=== PATIENT | female | born 1970 | race Caucasian/White ===

== ENCOUNTER 2017-12-27 12:10 | Inpatient (IN) | payer OTHER ==
[~2017-12-27] VITALS: Ht 160 cm; Wt 83.5 kg
[2017-12-27] MEDS ORDERED: ONDANSETRON HCL/PF 4 MG/2 ML VIAL ONE (12:55)
[2017-12-27 12:59] LABS: BASOPHILS # (AUTO) 0.1 /CMM (0.0-0.2); BASOPHILS % (AUTO) 1.3 % (0.0-2.0); EOSINOPHILS % (AUTO) 0.5 % (0.0-6.0); HEMATOCRIT 37 % (33-45); HEMOGLOBIN 12.4 g/dL (11.5-14.8); LYMPHOCYTES # (AUTO) 0.5 /CMM (0.8-4.8); LYMPHOCYTES % (AUTO) 6.7 % (20.0-44.0); MEAN CORPUSCULAR HGB CONC 34 g/dl (31.0-36.0); MEAN CORPUSCULAR VOLUME 86 fL (82-100); MONOCYTES # (AUTO) 0.6 /CMM (0.1-1.30); MONOCYTES % (AUTO) 7.8 % (2.0-12.0); NEUTROPHILS # (AUTO) 6.7 /CMM (1.8-8.9); NEUTROPHILS % (AUTO) 83.7 % (43.0-81.0); PLATELET COUNT (AUTO) 198 /CMM (150-450); RDW COEFFICIENT OF VARIATION 13.3 (11.5-15.0); WHITE BLOOD COUNT (AUTO) 7.9 K/uL (4.3-11.0)
[2017-12-27] MEDS ORDERED: IV NS 0.9% 1,000 ML BAG IV ONE ×2 (13:00→14:30)
[2017-12-27] MEDS ORDERED: ONDANSETRON HCL/PF 4 MG/2 ML VIAL IV ONE (13:00)
[2017-12-27 13:09] LABS: CALCIUM, SERUM 8.4 mg/dL (8.5-10.1); CREATININE 0.9 mg/dL (0.6-1.3)
--- NOTE | 2017-12-27 13:11 | NUR ---
pt states "feeling better now", relaxing in bed no obvious distress. Status quo VSS
[2017-12-27 13:15] LABS: BILIRUBIN,DIRECT 0.3 mg/dL (0.0-0.2); BILIRUBIN,TOTAL 0.9 mg/dL (0.2-1.0); TOTAL PROTEIN, SERUM 7.2 g/dL (6.4-8.2)
--- NOTE | 2017-12-27 14:05 | NUR ---
pt complaining of chiils-Febrile Temp 103 ER provider notified w/orders
[2017-12-27] MEDS ORDERED: ACETAMINOPHEN ES 500 MG TABLET ONE (14:11)
[2017-12-27] MEDS ORDERED: ACETAMINOPHEN 325 MG TABLET PO ONE (14:30)
[2017-12-27 14:45] LABS: APPEARANCE,URINE Clear (CLEAR); BILIRUBIN,URINE SMALL (NEGATIVE); BLOOD, URINE Trace-intact Ery/uL (NEGATIVE); COLOR,URINE Dark (YELLOW); KETONES,URINE 40 (NEGATIVE); LEUKOCYTE ESTERASE ,URINE Small (NEGATIVE); NITRITE, URINE Negative (NEGATIVE); PROTEIN,URINE 100 mg/dl (NEGATIVE); UGLUCOSE Negative (NEGATIVE)
[2017-12-27 14:55] LABS: BACTERIA,URINE Many /HPF (None Seen); RBC,URINE 0-2 /HPF (0-2); SQUAMOUS EPITHELIAL CELL,UR Few /HPF (None Seen)
[2017-12-27] MEDS ORDERED: FLAGYL/NS RTU 500 MG/100 ML PIGGYBACK IV ONE (15:00)
[2017-12-27] MEDS: PIPERACILLIN /TAZOBACTAM 3.375 G in IV D5W 50 ML IV SCH (15:30)
--- NOTE | 2017-12-27 15:49 | NUR ---
pt remains febrile ER provider notified with additional orders. Both pt and daughter aware of plan of care. Await admission
[2017-12-27] MEDS ORDERED: KETOROLAC TROMETHAMINE INJ 30 MG/ML VIAL ONE (15:50)
[2017-12-27] MEDS ORDERED: METRONIDAZOLE 500MG/ NS 100ML 500 MG in PREMIX 1 EA IV ONE (16:00)
[2017-12-27] MEDS ORDERED: KETOROLAC TROMETHAMINE INJ 30 MG/ML VIAL IV ONE (16:00)
--- NOTE | 2017-12-27 16:29 | NUR ---
resting comfortably in bed. both pt and daughter aware of PC. Status quo states "feeling a bit better" Temperature now 101.7 MD aware
--- NOTE | 2017-12-27 16:51 | NUR ---
Nurse knowledge Exchange w/RNMoni. 2nd Lactate pending NO acute changes No obvious distress. Transported/EMT Syed w/family member daughter (Rosey)
--- NOTE | 2017-12-27 17:57 | NUR ---
MS RN NOTES ADMITTED 47 YEAR OLD [place] FEMALE. ARRIVED AT 1710 VIA GURNEY, PATIENT AWAKE, ALERT AND ORIENTED X 4. VERBALLY RESPONSIVE AND RESPONDS TO VERBAL AND TACTILE STIMULI. BREATHING EVEN AND UNLABORED. NO SOB OR ACUTE DISTRESS NOTED. PATIENT DENIES PAIN OR DISCOMFORT. VERBALIZED THAT SHE WAS FEELING PAIN ON RUQ ABD PRIOR TO ADMISSION BUT NO FURTHER PAIN AT THIS TIME. PATIENT CALM AND RELAXED. NO CHANGES IN LOC NOTED. ORAL TEMPERATURE TAKEN WITH RESULT OF 98.6F. SISTER (NATHAN) AT BEDSIDE. PATIENT UNDER MEDICAL SUPERVISION OF GUILLERMINA JEAN BAPTISTE. MADE AWARE OF PATIENT ARRIVAL. AWAITING FOR ADMISSION ORDERS. PATIENT ORIENTED TO UNIT, STAFF, MEDICATIONS, PLAN OF CARE, PRIMARY PHYSICIAN. WILL CONTINUE TO MONITOR. BED LOCKED AND IN LOW POSITION. BILATERAL UPPER SIDE RAILS UP AND LOCKED. CALL LIGHT WITHIN EASY REACH
[2017-12-27 18:22] VITALS: BP 98/55
--- NOTE | 2017-12-27 18:55 | NUR ---
MS RN NOTES RECEIVED CALL FROM DR. LEVINE, NOTIFIED STAFF THAT PATIENT IS SCHEDULED FOR LAPAROSCOPIC CHOLECYSTECTOMY, POSSIBLE OPEN. ON 12/28/17 AT 0730. VERIFIED INFORMED CONSENT OBTAINED BY MD FROM PATIENT AND WITNESSED BY NURSING STAFF. PATIENT TO BE NPO UNTIL PROCEDURE. PATIENT SEEN AND EXAMINED BY GUILLERMINA JEAN BAPTISTE, MADE AWARE OF POTASSIUM 3.0, AWAITING FOR FURTHER ORDERS.
--- NOTE | 2017-12-27 18:58 | NUR ---
MS RN NOTES PATIENT RESTING INSIDE ROOM. AWAKE, ALERT AND ORIENTED. VERBALLY RESPONSIVE AND RESPONDS TO VERBAL AND TACTILE STIMULI. BREATHING EVEN AND UNLABORED. NO SOB OR ACUTE DISTRESS NOTED. NO CHANGES IN LOC. PATIENT CALM AND RELAXED. DAUGHTER, RIA, AT BEDSIDE. WILL ENDORSE TO INCOMING SHIFT FOR RAJ. BED LOCKED AND IN LOW POSITION. BILATERAL UPPER SIDE RAILS UP AND LOCKED. CALL LIGHT WITHIN EASY REACH
[2017-12-27] MEDS ORDERED: IV NS 0.9% 1,000 ML IV PRN (19:00)
[2017-12-27] MEDS ORDERED: ONDANSETRON HCL/PF 4 MG/2 ML VIAL IVP PRN (19:00)
[2017-12-27] MEDS ORDERED: Z GUARD REMEDY 2 OZ OINT TP PRN (19:00)
[2017-12-27] MEDS ORDERED: MAGNESIUM HYDROXIDE 30 ML UDC PO PRN (19:00)
[2017-12-27] MEDS ORDERED: HYDROCODONE/APAP 5/325MG 1 EACH TABLET PO PRN (19:00)
--- NOTE | 2017-12-27 19:13 | NUR ---
MS RN NOTES OBTAINED ORDER FROM GUILLERMINA JEAN BAPTISTE TO START KCL 10MEQ/50ML IV X 4 DOSES FOR A TOTAL OF 40MEQ. ORDER NOTED AND CARRIED OUT. PHARMACY MADE AWARE. PATIENT MADE AWARE AND VERBALIZED UNDERSTANDING.
--- NOTE | 2017-12-27 19:31 | NUR ---
MS RN OPENING NOTES PT WAS RECEIVED IN BED AT THE LOWEST AND LOCKED POSITION WITH SIDE RAILS UP X2, A/O X4, NO S/S OF PAIN OR DISTRESS NOTED, BREATHING EVEN AND UNLABORED ON ROOM AIR, IV ARE PATENT AND INTACT, YORUBA SPEAKING ONLY, DAUGHTER IS PRESENT AT THE BEDSIDE, SAFETY PRECAUTIONS IN PLACE, CALL LIGHT WITHIN REACH, WILL CONTINUE TO MONITOR
[2017-12-27 20:00] VITALS: BP 106/60
[2017-12-27] MEDS: PANTOPRAZOLE 40 MG VIAL IV SCH (20:40)
[2017-12-27] MEDS ORDERED: POTASSIUM CL. PREMIX PERIPHER. 200 ML ONE (20:46)
[2017-12-27] MEDS ORDERED: MORPHINE SULFATE INJ 2 MG/ML DISP.SYRIN IV PRN (21:00)
[2017-12-27] MEDS ORDERED: KETOROLAC TROMETHAMINE INJ 30 MG/ML VIAL IV PRN (21:00)
[2017-12-27] MEDS: POTASSIUM CHLORIDE 10 MEQ/50 ML PREMIXED IVPB FOR PERIPHERAL LINE IV SCH ×2 (21:11→22:41)
[2017-12-28] VITALS (13 sets, daily range): BP systolic 101–138; BP diastolic 63–76
[2017-12-28] MEDS: POTASSIUM CHLORIDE 10 MEQ/50 ML PREMIXED IVPB FOR PERIPHERAL LINE IV SCH ×2 (00:09→02:32)
[2017-12-28] MEDS ORDERED: PIPERACILLIN /TAZOBACTAM 3.375 G VIAL IV ONE ×2 (00:56→05:35)
[2017-12-28] MEDS: ZOLPIDEM TARTRATE 5 MG TABLET PO PRN ×2 (01:06→22:27)
--- NOTE | 2017-12-28 02:38 | NUR ---
PT POTASSIUM WAS NOTED TO BE 3.O, 40 MEQ WERE ORDERED, 4 BAGS WERE GIVEN, WILL CONTINUE TO MONITOR
[2017-12-28] MEDS: PIPERACILLIN /TAZOBACTAM 3.375 G in IV D5W 50 ML IV SCH ×5 (06:03→17:13)
--- NOTE | 2017-12-28 06:24 | NUR ---
MS RN CLOSING NOTES PT IN BED AT THE LOWEST AND LOCKED POSITION WITH SIDE RAILS UP X2, A/O X4, NO S/S OF PAIN OR DISTRESS NOTED, BREATHING EVEN AND UNLABORED ON ROOM AIR, IV ARE PATENT AND INTACT, AMHARIC SPEAKING ONLY, HAD DIFFICULTY SLEEPING DUE TO BEING WORRIED ABOUT PROCEDURE, 4 BAGS OF K+ WERE GIVEN, DAUGHTER PRESENT AT BEDSIDE, SAFETY PRECAUTIONS IN PLACE, ALL NEEDS ATTENDED TO, CALL LIGHT WITHIN REACH, WILL CONTINUE TO MONITOR AND ENDORSE TO DAY SHIFT FOR RAJ.
[2017-12-28 07:00] LABS: BASOPHILS % (AUTO) 0.2 % (0.0-2.0); EOSINOPHILS % (AUTO) 0.7 % (0.0-6.0); HEMATOCRIT 33 % (33-45); HEMOGLOBIN 10.7 g/dL (11.5-14.8); LYMPHOCYTES # (AUTO) 0.7 /CMM (0.8-4.8); LYMPHOCYTES % (AUTO) 12.7 % (20.0-44.0); MEAN CORPUSCULAR HGB CONC 33 g/dl (31.0-36.0); MEAN CORPUSCULAR VOLUME 89 fL (82-100); MONOCYTES # (AUTO) 0.5 /CMM (0.1-1.30); MONOCYTES % (AUTO) 8.8 % (2.0-12.0); NEUTROPHILS # (AUTO) 4.2 /CMM (1.8-8.9); NEUTROPHILS % (AUTO) 77.6 % (43.0-81.0); PLATELET COUNT (AUTO) 160 /CMM (150-450); RDW COEFFICIENT OF VARIATION 14.3 (11.5-15.0); RED BLOOD CELL COUNT(AUTO) 3.69 MIL/uL (4.0-5.2); WHITE BLOOD COUNT (AUTO) 5.4 K/uL (4.3-11.0)
--- NOTE | 2017-12-28 07:01 | NUR ---
MS RN NOTES PATIENT RECEIVED AWAKE, ALERT AND ORIENTED. VERBALLY RESPONSIVE AND RESPONDS TO VERBAL AND TACTILE STIMULI. BREATHING EVEN AND UNLABORED. NO SOB OR ACUTE DISTRESS. DENIES ANY PAIN OR DISCOMFORT. PATIENT TO BE PICKED UP BY OR STAFF, FOR LAP CHOLECYSTECTOMY, POSSIBLE OPEN THIS AM. PATIENT NPO SINCE ADMISSION ON UNIT. DAUGHTER, RIA, AT BEDSIDE. WILL CONTINUE TO MONITOR.
--- NOTE | 2017-12-28 07:02 | NUR ---
PT was picked up by OR in medically stable condition at this time
[2017-12-28 07:17] LABS: CALCIUM, SERUM 7.5 mg/dL (8.5-10.1); CREATININE 0.7 mg/dL (0.6-1.3); MAGNESIUM 1.9 mg/dL (1.8-2.4); PHOSPHORUS 2.1 mg/dL (2.5-4.9); POTASSIUM 3.4 mmol/L (3.5-5.1)
[2017-12-28] MEDS ORDERED: MORPHINE SULFATE INJ 4 MG/ML DISP.SYRIN IV PRN ×2 (07:25→10:30)
[2017-12-28] MEDS ORDERED: FENTANYL PF 100MCG/2ML AMPUL ONE (07:38)
[2017-12-28] MEDS ORDERED: SUCCINYLCHOLINE CHLORIDE 20 MG/ML VIAL ONE (07:39)
[2017-12-28] MEDS ORDERED: HYDROMORPHONE INJ 2 MG/ML DISP.SYRIN ONE (09:11)
--- NOTE | 2017-12-28 10:00 | NUR ---
MS RN NOTES PATIENT ARRIVED BACK FROM RECOVERY UNIT AT 0945. REPORT RECEIVED FROM DANILO RICHARD. PATIENT ARRIVED VIA GURNEY, BREATHING EVEN AND UNLABORED. NO SOB OR ACUTE DISTRESS NOTED. CAMILLE DRAIN IN PLACE ON ABD RUQ WITH BRIGHT RED OUTPUT NOTED ON BULB SYRINGE. BLE SCD IN PLACE. PATIENT WITH ORDERS FROM DR. LEVINE, NOTED AND CARRIED OUT. WITH ORDER FOR JW MILAN, PLACED CALL TO [facility] TO PROVIDE. DAUGHTER AT BEDSIDE. WILL CONTINUE TO MONITOR. BED LOCKED AND IN LOW POSITION. BILATERAL UPPER SIDE RAIL UP AND LOCKED. CALL LIGHT WITHIN EASY REACH
--- NOTE | 2017-12-28 10:20 | NUR ---
MS RN NOTES PATIENT WITH C/O PAIN ON ABD RUQ. OFFERED WITH NORCO PO BUT PATIENT VERBALIZED SHE PREFERS IV. GUILLERMINA JEAN BAPTISTE PRESENT IN UNIT, INFORMED THAT PATIENT RECEIVED DILAUDID 0.4 IV AT 0915 AT RECOVERY ROOM. GAVE OK TO ADMINISTER MORPHINE IV ORDERED Q2 PRN. MEDICATION ADMINISTERED ORDERED. PATIENT AWARE AND VERBALIZED UNDERSTANDING. WILL CONTINUE TO MONITOR
[2017-12-28] MEDS ORDERED: HYDROCODONE/APAP 5/325MG 1 EACH TABLET PO PRN (10:30)
[2017-12-28] MEDS: IV PREMIX D5 1/2NS + KCL 1,000 ML IV PRN (13:00)
[2017-12-28] MEDS: ACETAMINOPHEN 325 MG TABLET PO PRN (15:13)
[2017-12-28] MEDS ORDERED: NEUTRA PHOS 1 POWD.PACKET PO ONE (15:30)
--- NOTE | 2017-12-28 17:08 | NUR ---
MS RN NOTES PATIENT NOTED WITH INCREASED TEMPERATURE OF 102.4 F ORAL, VERIFIED TEMPERATURE X 3. PATIENT RECEIVED TORADOL AT 1618, COOLING MEASURES INITIATED. TEMPERATURE WENT DOWN TO 99.4 AFTER 30 MINUTES. NO CHANGES IN LOC NOTED. PATIENT REMAINS CALM AND RELAXED. GUILLERMINA JEAN BAPTISTE MADE AWARE. NO NEW ORDERS AT THIS TIME. WILL CONTINUE TO MONITOR
--- NOTE | 2017-12-28 18:58 | NUR ---
MS RN NOTES PATIENT RESTING INSIDE ROOM. AWAKE, ALERT AND ORIENTED. VERBALLY RESPONSIVE AND RESPONDS TO VERBAL AND TACTILE STIMULI. BREATHING EVEN AND UNLABORED. NO SOB OR ACUTE DISTRESS NOTED AT THIS TIME. PATIENT DENIES ANY PAIN OR DISCOMFORT. NO CHANGES IN LOC NOTED. IV INTACT AND PATENT. WILL ENDORSE TO INCOMING SHIFT FOR RAJ. BED LOCKED AND IN LOW POSITION. BILATERAL UPPER SIDE RAILS UP AND LOCKED. CALL LIGHT WITHIN EASY REACH
--- NOTE | 2017-12-28 19:29 | NUR ---
MS RN OPENING NOTES PT WAS RECEIVED IN BED AT THE LOWEST AND LOCKED POSITION WITH SIDE RAILS UP X2, A/O X4, NO S/S OF PAIN OR DISTRESS NOTED, BREATHING EVEN AND UNLABORED ON ROOM AIR, IV ARE PATENT AND INTACT, CURRENTLY STOPPED IVF DUE TO FINDING HER HANDS TO BE SLIGHTLY EDEMATOUS, [place] SPEAKING ONLY, FAMILY IS PRESENT AT THE BEDSIDE, SAFETY PRECAUTIONS IN PLACE, CALL LIGHT WITHIN REACH, WILL CONTINUE TO MONITOR
--- NOTE | 2017-12-28 19:38 | NUR ---
ASSESSED BOTH HANDS AND IV SITES AGAIN IN ORDER MAKE SURE WITH ELMIRA AND NO EDEMA WAS NOTED, WILL CONTINUE FLUIDS AND TO MONITOR
[2017-12-28] MEDS: PANTOPRAZOLE 40 MG VIAL IV SCH (19:43)
[2017-12-29] MEDS: PIPERACILLIN /TAZOBACTAM 3.375 G in IV D5W 50 ML IV SCH ×3 (00:05→12:43)
--- NOTE | 2017-12-29 03:30 | NUR ---
CAMILLE DRAIN WAS DRAINED AND NOTED TO HAVE 30ML OF SEROSANGUENOUS FLUID
[2017-12-29] MEDS: IV PREMIX D5 1/2NS + KCL 1,000 ML IV PRN (04:56)
--- NOTE | 2017-12-29 05:21 | NUR ---
AREA AROUND THE CAMILLE DRAIN SITE WAS NOTED TO BE LEAKING, REINFORCED WITH GAUZE AND TAPE, 45ML OF SEROSANGUINOUS DRAINAGE WAS REMOVED, WILL CONTINUE TO MONITOR
--- NOTE | 2017-12-29 06:20 | NUR ---
MS RN CLOSING NOTES PT LAYING IN BED AT THE LOWEST AND LOCKED POSITION WITH SIDE RAILS UP X2, A/O X4, NO S/S OF PAIN OR DISTRESS NOTED, BREATHING EVEN AND UNLABORED, IV SITE ON RIGHT AND LEFT ARM ARE PATENT AND INTACT WITH IVF RUNNING, [place] SPEAKING ONLY, RUQ CAMILLE DRAIN NOTED TO BE DRAINING AND DRAINED 75 ML IN TOTAL THIS SHIFT WITH THE DRESSING REINFORCED DUE TO SLIGHT LEAKAGE, SAFETY PRECAUTIONS IN PLACE, CALL LIGHT WITHIN REACH, ALL NEEDS ATTENDED TO, WILL ENDORSE TO DAY SHIFT FOR CONTINUITY OF CARE.
[2017-12-29 06:39] LABS: ALBUMIN 2.1 g/dL (3.4-5.0); BILIRUBIN,TOTAL 0.3 mg/dL (0.2-1.0); CALCIUM, SERUM 7.4 mg/dL (8.5-10.1); CREATININE 0.7 mg/dL (0.6-1.3); PHOSPHORUS 2.2 mg/dL (2.5-4.9); POTASSIUM 3.3 mmol/L (3.5-5.1); TOTAL PROTEIN, SERUM 5.9 g/dL (6.4-8.2)
[2017-12-29 06:49] LABS: BASOPHILS % (AUTO) 0.2 % (0.0-2.0); EOSINOPHILS % (AUTO) 0.5 % (0.0-6.0); HEMATOCRIT 29 % (33-45); LYMPHOCYTES # (AUTO) 0.7 /CMM (0.8-4.8); LYMPHOCYTES % (AUTO) 8.9 % (20.0-44.0); MEAN CORPUSCULAR HGB CONC 34 g/dl (31.0-36.0); MEAN CORPUSCULAR VOLUME 87 fL (82-100); MONOCYTES # (AUTO) 0.6 /CMM (0.1-1.30); MONOCYTES % (AUTO) 8.2 % (2.0-12.0); NEUTROPHILS # (AUTO) 6.4 /CMM (1.8-8.9); NEUTROPHILS % (AUTO) 82.2 % (43.0-81.0); PLATELET COUNT (AUTO) 187 /CMM (150-450); RDW COEFFICIENT OF VARIATION 13.5 (11.5-15.0); RED BLOOD CELL COUNT(AUTO) 3.37 MIL/uL (4.0-5.2); WHITE BLOOD COUNT (AUTO) 7.7 K/uL (4.3-11.0)
--- NOTE | 2017-12-29 07:30 | NUR ---
RN OPENING NOTES RECEIVED PATIENT AWAKE ALERT AND VERBALLY RESPONSIVE, ABLE TO MAKE NEEDS KNOWN. RESPIRATIONS EVEN AND UNLABORED, DENIES ANY PAIN OR DISCOMFORT AT THIS TIME. IV ACCESS TO RIGHT AND LEFT HANDS PATENT AND INTACT, NO REDNESS OR INFILTRATION NOTED. REMAINS AFEBRILE, SAFETY MEASURES IN PLACE, KEPT CLEAN DRY AND COMFORTABLE, CALL LIGHT WITHIN EASY REACH, WILL CONTINUE TO MONITOR
[2017-12-29 08:00] VITALS: BP 125/51
[2017-12-29] MEDS ORDERED: POTASSIUM CHLORIDE 20 MEQ TAB.PRT.SR PO ONE (10:00)
[2017-12-29] MEDS ORDERED: NEUTRA PHOS 1 POWD.PACKET PO ONE (10:00)
[2017-12-29 10:27] LABS: BAND % (MANUAL) 2 % (0.0-5.0); LYMPHOCYTES % (MANUAL) 4 % (16-48); MONOCYTES % (MANUAL) 6 % (0-11.0); NEUTROPHILS % (MANUAL) 88 (42-76)
[2017-12-29] MEDS ORDERED: K PHOS NEUTRAL 250 MG TABLET PO ONE (11:30)
--- NOTE | 2017-12-29 13:00 | NUR ---
RN NOTES/MD ROUNDS PT SEEN AND EXAMINED BY DR. LEVINE, WHO REMOVED CAMILLE DRAIN WITH NO ASE NOTED, WILL CONTINUE TO MONITOR
--- NOTE | 2017-12-29 14:00 | NUR ---
RN NOTES/TELEPHONE AD TAKER RELAYED TO DNP PT IS CLEARED FROM SURGICAL STANDPOINT, DNP TO REASSESS FOR DISCHARGE
--- NOTE | 2017-12-29 15:50 | NUR ---
WIND TURBINE SERVICE TECHNICIAN NOTES PATIENT AWAKE ALERT AND VERBALLY RESPONSIVE, ABLE TO MAKE NEEDS KNOWN. RESPIRATIONS EVEN AND UNLABORED, DENIES ANY PAIN OR DISCOMFORT AT THIS TIME. IV ACCESS TO RIGHT AND LEFT HANDS AND ID BAND REMOVED WITH NO ASE NOTED. REMAINS AFEBRILE. PT WITH DISCHARGE ORDERS. REVIEWED WITH PATIENT DRESSING CHANGE INSTRUCTIONS AND DISCHARGE INSTRUCTIONS REVIEWED WITH PATIENT WITH NOTED VERBAL UNDERSTANDING. PRESCRIPTION GIVEN TO PATIENT AND DAUGHTER AND EXPLAINED, ALL BELONGINGS ACCOUNTED FOR, NO PICTURES OF SKIN NOTED. PT TO FOLLOW UP WITH DR. LEVINE IN ONE WEEK. ASSISTED TO JOHNNIE DISCHARGED TO HOME IN STABLE CONDITION
[2017-12-29] MEDS: ACETAMINOPHEN 325 MG TABLET PO PRN (15:52)
== END 2017-12-29 15:50 | disposition home or self-care (01) | DRG 710 ==
LOC: ER 12:12 → MED 17:01
PROVIDERS: ADMIT Nurse Practitioner Acute Care; ATTEND Nurse Practitioner Acute Care
PROC: 0DNU4ZZ Release Omentum, Percutaneous Endoscopic Approach (ICD-10-PCS; principal; 2017-12-28 07:30)
PROC: 0FT44ZZ Resection of Gallbladder, Percutaneous Endoscopic Approach (ICD-10-PCS; principal; 2017-12-28 07:30)
DX: A41.9 Sepsis, unspecified organism (principal); K81.0 Acute cholecystitis; E44.1 Mild protein-calorie malnutrition; E83.39 Other disorders of phosphorus metabolism; E87.6 Hypokalemia; E87.1 Hypo-osmolality and hyponatremia; K66.0 Peritoneal adhesions (postprocedural) (postinfection); E66.9 Obesity, unspecified; Z68.32 Body mass index [BMI] 32.0-32.9, adult; E88.09 Other disorders of plasma-protein metabolism, not elsewhere classified
CPT/HCPCS: 36415; 76705-TC; 80048-TC; 80053-TC; 80061-TC; 80076-TC; 81000-TC; 83605-TC; 83690-TC; 83735-TC; 84100-TC; 84484-TC; 84703-TC; 85025-TC; 85730-TC; 87040-TC; 87070-TC; 87081-TC; 87086-TC; 87186-TC; 88304-TC; A4216; A4217; A4606; A6403; C9113; J0330; J0690; J1100; J1170; J1885; J2270; J2370; J2405; J2543; J2710; J3010; J3480; J3490; J7030; J7040; J7060; Z7610